=== PATIENT | female | born 1995 | race Caucasian/White ===

== ENCOUNTER 2019-12-29 17:13 | Emergency (ER) | payer BC, SELFPAY ==
[2019-12-29 17:22] VITALS: BP 135/103; PULSE 96; RESP 18; TEMP 36.7; O2SAT 100
--- NOTE | 2019-12-29 17:33 | ED.HA ---
HPI - Headache General Chief Complaint: Headache Stated Complaint: bad headache Time Seen by Provider: 12/29/19 17:34 Source: patient Mode of arrival: ambulatory Limitations: no limitations History of Present Illness HPI Narrative: Carla Edmond is a 24 yo female with a PMH of migraine who is here with a 10/10 migraine headache, photophobic, headache generalized to top of head. Menstrual period started this A, worst headache in years. CT head in when child. Mother also has migraines Pt has kidney reflux, kidney function normal within year, also has nail patella syndrome Saw a neurologist in last few years in [place]- she reports his name is Dr Alicea Related Data Home Medications Medication Instructions Recorded Confirmed ondansetron HCl 8 mg PO Q12H PRN 12/29/19 12/29/19 sumatriptan succinate 50 mg PO ONCE PRN 12/29/19 12/29/19 Allergies Allergy/AdvReac Type Severity Reaction Status Date / Time banana Allergy Unknown Swelling Verified 12/29/19 17:56 of Lip/Tongue/Throat MELONS Allergy Unknown Swelling Uncoded 12/29/19 17:56 of Lip/Tongue/Throat STERI-STRIPS Allergy Unknown Rash Uncoded 12/29/19 17:56 Review of Systems Review of Systems: Narrative: CONSTITUTIONAL: Denies fever, chills, sweats. EYES: Denies visual changes, redness, discharge. ENT: Denies rhinorrhea, congestion, sore throat, otalgia. CARDIOVASCULAR: Denies chest pain, palpitations, edema. RESPIRATORY: Denies dyspnea, wheezing, cough GASTROINTESTINAL: Denies abdominal pain, has nausea, has vomiting, diarrhea. GENITOURINARY: Denies dysuria, hematuria, abnormal discharge SKIN: Denies rash or itching. NEUROLOGIC: Denies numbness, or focal weakness. Headache rated at10/10 PSYCHIATRIC: Denies anxiety or depression. [facility] Past Medical History Medical History Migraine headache Family History Family History Other No active medical problems Social History Social History (Updated 12/29/19 @ 17:39 by Caity Reddy CNP) Smoking status: Never smoker Alcohol intake: current Comments At time of signature, I agree with nursing past medical, surgical, social and family history. There is no relevant family history pertinent to the presenting complaint. Exam Narrative: Exam Narrative: GENERAL: This is a well-nourished, well-developed patient, in moderate distress. HEAD: normocephalic, atraumatic. EYES: . Sclera clear/white. Vision is grossly intact. EARS: External ears normal, . Hearing grossly intact. NOSE: External nose normal without nasal discharge, nares without redness, no rhinorrhea. THROAT: Mucous membranes moist, p NECK: Neck supple, CARDIOVASCULAR: Regular rate and rhythm without murmurs, gallops, or rubs. RESPIRATORY: Clear to auscultation. Breath sounds equal bilaterally. No wheezes, rales, or rhonchi. GASTROINTESTINAL: Abdomen soft, non-tender, SKIN: warm, intact with no suspicious lesions or rash, good texture and turgor. NEURO: awake, alert, and oriented to person, place and time. There were no obvious focal neurologic abnormalities. Steady gait. PEERL, cranial nerves grossly intact. equal upper /lower extremity strength, good rapid alternating movements EXTREMITIES: Normal range of motion. BACK: Nontender without deformity Course Course Emergency Course: Discussed pain management with patient. Continue with IV fluids at express care encouraged to go to the ER to receive medications for migraine IV. Patient declined and wanted to try taking them orally and hydrate at home Given Toradol IM, Benadryl po, Zofran po-checked after 30 minutes- on pain scale is 4/10 Discussed reasons for her to be concerned and go to the ER including increasing headache change in vision change in balance, increased nausea vomiting Patient's blood pressure was elevated at triage-repeat measurement at discharg
[2019-12-29] MEDS: ONDANSETRON HCL ODT 4 MG TABLET SUBLINGUAL (18:01)
[2019-12-29] MEDS: KETOROLAC 30 MG/ML VIAL (*BKC) IM (18:01)
[2019-12-29] MEDS: diphenhydrAMINE HCl CAP 25 MG CAPSULE PO (18:01)
[2019-12-29 18:40] VITALS: BP 129/95; BP 132/96; PULSE 79
== END 2019-12-29 18:40 | disposition home or self-care (01) ==
PROVIDERS: Emergency Provider Nurse Practitioner; PCP Internal Medicine
DX: G43.009 Migraine without aura, not intractable, without status migrainosus (principal)
CPT/HCPCS: 96372; 99213; A9270; G0463; J1885